=== PATIENT | female | born 1995 | race Caucasian/White ===

== ENCOUNTER → 2017-01-03 | Outpatient (CLI) | payer BC, OTHER | END | disposition home or self-care (01) | LOC: LAB.O 15:14 | PROVIDERS: ATTEND Family Medicine | DX: M62.81 Muscle weakness (generalized) (principal); J45.21 Mild intermittent asthma with (acute) exacerbation; Z79.899 Other long term (current) drug therapy ==

== ENCOUNTER → 2017-02-10 | Outpatient (CLI) | payer BC, OTHER ==
--- NOTE | 2017-02-10 16:33 | CT ---
Procedure: CT HEAD WITHOUT IV CONTRAST Exam Date: 02/10/2017 Ordering Provider: ELIO FONG Clinical Indication: F71, intellectual disability Comparison: None Technique: Using a helical scanner, sequential axial imaging of the brain was obtained without the administration of intravenous contrast. The exam was obtained from the skull base to vertex. This exam was performed according to our departmental dose optimization program which includes use of automated exposure control, adjustment of the mA and/or kV according to patient size and/or use of iterative reconstruction technique. Findings: Exam is limited by patient motion. Ventricular size and configuration are normal. There is no midline shift or hydrocephalus. There is no acute intracranial hemorrhage or mass effect. There is no acute infarct. Cortical robertson matter, subcortical white matter, and periventricular white matter have normal appearance. The calvarium is intact. There is no fracture. There is no lytic or sclerotic lesion. The visualized paranasal sinuses and mastoid air cells are unremarkable. IMPRESSION: 1. No acute intracranial abnormality demonstrated. Electronically signed by: Aguila Steward MD 02/10/2017 4:33 PM CDT
--- NOTE | 2017-02-11 08:18 | CT ---
EXAM DESCRIPTION: Cervical Spine CLINICAL HISTORY: G25.9 COMPARISON: None Available. TECHNIQUE: Cervical CT is performed with thin-section axial imaging. MPRs are created and reviewed as well. FINDINGS: Rotation of the head and cervical spine towards the right is present with loss of normal cervical lordosis. No fracture or dislocation is seen. There is no vertebral abnormality. The C2-3 disc space is diminutive and likely represents incomplete development on a developmental basis without degenerative change. The remaining cervical disc spaces are well-maintained. There is no canal or foraminal compromise. IMPRESSION: Rotation of the cervical spine towards the right and head with loss of normal lordosis suggesting cervical strain or spasm with no injury or malalignment or fracture. 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 Electronically signed by: Yfn Zarate MD 02/11/2017 7:51 AM CDT
== END | disposition home or self-care (01) ==
LOC: CT 09:09
PROVIDERS: ATTEND Psychiatry & Neurology Neurology
DX: F71 Moderate intellectual disabilities (principal)

== ENCOUNTER → 2018-01-30 | Outpatient (CLI) | payer BC, OTHER ==
--- NOTE | 2018-01-30 21:18 | RAD ---
EXAM DESCRIPTION: Cervical Spine,3 Views CLINICAL HISTORY: 22 years Female, SCOLIOSIS, UNSPECIFIED COMPARISON: September 28, 2011 FINDINGS: No fracture or subluxation. No significant cervical thoracic scoliosis.. Soft tissues are unremarkable. IMPRESSION: No acute abnormality. No evidence of cervical or upper thoracic scoliosis. Electronically signed by: Remi Pineda MD 01/30/2018 9:17 PM CDT
--- NOTE | 2018-01-30 21:20 | RAD ---
EXAM DESCRIPTION: Lumbar Spine 3 Views CLINICAL HISTORY: 22 years Female, SCOLIOSIS, UNSPECIFIED COMPARISON: KUB radiograph from September 08, 2013 FINDINGS: No fracture or subluxation. Vertebral body heights and disc spaces are preserved. Lumbar levoscoliosis with a Nair angle of 31 degrees, apex at L2. Soft tissues are unremarkable. Gaseous distention of the stomach. IMPRESSION: Lumbar levoscoliosis Electronically signed by: Remi Pineda MD 01/30/2018 9:19 PM CDT
--- NOTE | 2018-01-30 21:24 | RAD ---
EXAM DESCRIPTION: Thoracic Spine,AP Lateral CLINICAL HISTORY: 22 years Female, SCOLIOSIS, UNSPECIFIED COMPARISON: Chest radiographs from April 03, 2014. FINDINGS: Lower thoracic dextroscoliosis with a Nair angle of 20 degrees, apex at T9. No fracture or subluxation. Vertebral body heights are preserved. Visualized lung is clear. Soft tissues are unremarkable. IMPRESSION: Thoracic dextroscoliosis. Electronically signed by: Remi Pineda MD 01/30/2018 9:22 PM CDT
== END ==
LOC: RAD 17:10
PROVIDERS: ATTEND Nurse Practitioner Family
DX: M41.9 Scoliosis, unspecified (principal)

== ENCOUNTER 2018-10-29 15:59 | Observation (INO) | payer BC, MEDICAID, OTHER ==
[2018-10-29] MEDS ORDERED: SODIUM CHLORIDE 0.9% 1000ML 1,000 ML IVS ONE (16:17)
--- NOTE | 2018-10-29 17:38 | RAD ---
EXAM DESCRIPTION: Abdomen Series CLINICAL HISTORY:23 years Female, elevated lft, dehydration Comparison: CT abdomen from May 09, 2015 FINDINGS: No focal lung consolidation. No pleural effusion. No pneumothorax. Cardiac and mediastinal silhouette is unremarkable. No acute osseous abnormality. Soft tissues are unremarkable. Nonobstructive bowel gas pattern. Large amount of rectosigmoid stool. Lumbar levocurvature. Right acetabular dysplasia. No evidence of free air. IMPRESSION: No acute findings within the chest or abdomen. Large amount of rectosigmoid stool. Lumbar levoscoliosis. Electronically signed by: Remi Pineda MD 10/29/2018 5:37 PM WELFARE ELIGIBILITY INTERVIEWER
[2018-10-29] MEDS ORDERED: FLUCONAZOLE 100 MG TAB PO ONE (17:52)
[2018-10-29] MEDS ORDERED: IBUPROFEN 200 MG TAB PO ONE (17:52)
--- NOTE | 2018-10-29 18:25 | CT ---
CLINICAL HISTORY: elevated lft, decreased appetite COMPARISON: None. TECHNIQUE: CT ABDOMEN PELVIS WITHOUT IV CONTRAST on 10/29/2018 5:50 PM [employer]ILROAD COMMISSIONER This exam was performed according to our departmental dose-optimization program, which includes automated exposure control, adjustment of the mA and/or kV according to patient size and/or use of iterative reconstruction technique. FINDINGS: Lower lungs are clear. Abdomen: Liver is fatty in attenuation. There is no biliary dilatation. Gallbladder is normal in appearance. The pancreas and spleen are normal in appearance. The adrenal glands and kidneys are unremarkable. Abdominal aorta is normal in course and caliber without aneurysm. There is no free air. There is no retroperitoneal adenopathy. Pelvis: There is large amount of stool throughout the colon. Urinary bladder is unremarkable. There is no free fluid. Uterus contains a small fibroid. Appendix is not well seen. Skeleton: There are no acute osseous findings. No suspicious bony lesions. There is curvature of the lumbar spine to the left. IMPRESSION: No definite acute inflammatory process. Electronically signed by: Rory Hu MD 10/29/2018 6:23 PM RAILROAD COMMISSIONER
[2018-10-29] MEDS ORDERED: MAGNESIUM HYDROXIDE 30 ML UD PO ONE (18:30)
[2018-10-29] MEDS ORDERED: cefTRIAXone SODIUM 1 GM in SODIUM CHL 0.9% 50ML MIN-BAG+ 50 ML IVPB ONE (18:56)
[2018-10-29] MEDS ORDERED: SODIUM CHL 0.9% 50ML MIN-BAG+ 50 ML IVPB ONE (19:03)
[2018-10-29] MEDS ORDERED: cefTRIAXone SODIUM 1 GM VIAL ONE (19:03)
--- NOTE | 2018-10-29 19:04 | ED.PDOC ---
History of Present Illness - General Chief Complaint: General Stated Complaint: not eating or drinking,fever Time Seen by Provider: 10/29/18 16:07 Source: patient, family Exam Limitations: clinical condition - History of Present Illness Initial Comments: The patient is a 23-year-old patient with microcephaly brought in by her family secondary to decreased oral intake and decreased urine output over the last 24- 48 hours. The patient has had multiple episodes like this in the past either due to constipation or pharyngitis. Additionally she had an episode 2 years ago where she had a rise in her liver function tests that resolved with rehydration. On examination the patient is mildly to moderately dehydrated and does obviously have a pharyngitis. Nares are also red with clear rhinorrhea. No evidence of abdominal pain to palpation. Lungs are clear. The patient is alert and interactive. She does not really communicate more purposefully. Parents are helpful. Timing/Duration: unsure Severity: moderate Improving Factors: nothing Worsening Factors: nothing Associated Symptoms: loss of appetite, malaise Allergies/Adverse Reactions: Allergies NO KNOWN ALLERGY Allergy (Verified 05/09/15 20:31) Home Medications: Ambulatory Orders Montelukast [Singulair] 10 mg PO BEDTIME 06/07/16 Norgestimate-Ethinyl Estradiol [[place]-Linyah 0.25-35 mg-Mcg] 1 tab PO DAILY 06/07/16 Review of Systems - Review of Systems Constitutional: States: fever - low-grade, malaise EENTM: States: nose congestion, throat pain Respiratory: States: no symptoms reported Cardiology: States: no symptoms reported Gastrointestinal/Abdominal: States: nausea. Denies: vomiting Genitourinary: States: no symptoms reported Musculoskeletal: States: no symptoms reported Skin: States: no symptoms reported Neurological: States: no symptoms reported Endocrine: States: no symptoms reported All other Systems: No Change from Baseline Past Medical History (General) - Patient Medical History Hx Seizures: No Hx Stroke: No Hx Dementia: No Hx Asthma: No Hx of COPD: No Hx Cardiac Disorders: No Hx Congestive Heart Failure: No Hx Pacemaker: No Hx Hypertension: No Hx Thyroid Disease: No Hx Diabetes: No Hx Gastroesophageal Reflux: No Hx Renal Disease: No Hx Cancer: No Hx of HIV: No Hx Hepatitis C: No Hx MRSA: No - Vaccination History Hx Influenza Vaccination: No - Social History Hx Tobacco Use: No Hx Alcohol Use: No Hx Substance Use: No Hx Substance Use Treatment: No Hx Depression: No - Female History Patient : No Family Medical History - Family History Mother Family History: No Known Physical Exam - Physical Exam General Appearance: Alert, Comfortable, No apparent distress Eye Exam: bilateral normal Ears, Nose, Throat: hearing grossly normal, nasal congestion, pharyngeal erythema Neck: full range of motion, supple Respiratory: lungs clear, normal breath sounds, no respiratory distress, no accessory muscle use Cardiovascular/Chest: normal peripheral pulses, regular rate, rhythm, no edema Peripheral Pulses: radial,right: 2+, radial,left: 2+ Gastrointestinal/Abdominal: non tender, soft Rectal Exam: deferred Back Exam: no CVA tenderness Extremity: no pedal edema, normal capillary refill Neurologic: alert, normal mood/affect - for this patient Skin Exam: normal color Comments: Vital Signs - 24 hr 10/29/18 10/29/18 16:07 17:17 Temperature 100 F H Pulse Rate [ 72 120 H Left Brachial] Respiratory 20 18 Rate Blood Pressure 137/110 [Left Arm] O2 Sat by Pulse 96 97 Oximetry Progress - Progress Progress: 10/29/18 19:05 the patient is a 23-year-old female presenting to the emergency room secondary to decreased oral intake and decreased urine output. X-ray does confirm constipation and patient has received a dose of milk of magnesia. She does obviously have a rhinitis and significant pharyngitis. She has tested negative for strep. She has received a dose of Motrin to help with discomfort. She does also have significant dehydration and has received a liter of IV fluids. The patient does have an elevation of her liver function tests which has occurred in the past. In the past and resolved with rehydration. We will see if that does the same today. CT scan of abdomen and pelvis shows no definitive pathology of the liver or gallbladder. Admit for continued care. Blood culture along with urinalysis and amylase and lipase are still pending. - Results/Orders Results/Orders: Laboratory Tests 10/29/18 10/29/18 10/29/18 16:14 16:35 16:35 WBC 5.9 RBC 4.80 Hgb 14.5 Hct 43.6 MCV 90.8 MCH 30.2 MCHC 33.3 RDW 14.8 H Plt Count 200 MPV 8.2 Absolute Neuts (auto) 4.30 Absolute Lymphs (auto) 1.20 Absolute Monos (auto) 0.40 Absolute Eos (auto) 0.00 Absolute Basos (auto) 0.00 Neutrophils % 72.7 Lymphocytes % 21.0 Monocytes % 5.9 Eosinophils % 0.0 L Basophils % 0.4 Sodium 138 Potassium 4.0 Chloride 105 Carbon Dioxide 24 Anion Gap 13.0 BUN 24 H Creatinine 0.58 L BUN/Creatinine Ratio 41.4 H Random Glucose 127 H Serum Osmolality 281.3 Calcium 8.5 Total Bilirubin 0.3 AST 180 H ALT 242 H Alkaline Phosphatase 100 Serum Total Protein 7.6 Albumin 3.0 L Globulin 4.6 H Albumin/Globulin Ratio 0.7 L Group A Strep Rapid Negative CT scan of abdomen and pelvis is reassuring is in no acute hepatic or gallbladder pathology. See details of report. Pending at this time are amylase lipase and blood culture as well as urinalysis. Departure - Departure Clinical Impression: Dehydration, Rhinopharyngitis, Hepatitis Disposition: Admit Patient Referrals: SHIRIN LAMB MD [Primary Care Provider] - 1-2 Weeks Home Medications: Ambulatory Orders Montelukast [Singulair] 10 mg PO BEDTIME 06/07/16 Norgestimate-Ethinyl Estradiol [[place]-Linyah 0.25-35 mg-Mcg] 1 tab PO DAILY 06/07/16 Decision To Admit - Decistion To Admit Decision to Admit Reason: Medical Nature Decision to Admit Date: 10/29/18 Decision to Admit Time: 19:07
--- NOTE | 2018-10-29 20:02 | HP ---
SUPERVISING PHYSICIAN: Yfn Weaver MD CHIEF COMPLAINT: Not eating or drinking with subjective fever. HISTORY OF PRESENT ILLNESS: Ms. Morelos is a 23-year-old female patient who has a history of microcephaly who was brought to the Emergency Room tonight by her family due to the fact that she had demonstrated decreased oral intake and decreasing urine output over the last 24 to 48 hours. The patient has had several episodes in the past and, per family, usually this is due to constipation and pharyngitis. Also it is noted in the last year, she has had some elevated liver enzymes which resolved with rehydration with no acute findings. Today in the Emergency Room, the patient was found to be moderately dehydrated with obvious pharyngitis. She had no abdominal pain on palpation. She is alert, interactive and her family notes she does not usually communicate purposefully. Laboratory studies in the Emergency Room showed she had a normal white count at 5,900 without a left shift. Chemistry showed she had elevated BUN of 24, creatinine 0.58, glucose 127. Electrolytes were within normal limits. Her AST and ALT were both elevated with AST 180, ALT 242. Amylase and lipase both normal. Vital signs initially in the Emergency Room showed she was running a low grade fever of 100, but she was mildly hypertensive with blood pressure 137/110, saturation 93% on room air with pulse 120. Given that she was looking dehydrated and question of pharyngitis and reported history, additional laboratory specimens were completed including a strep screen which was negative for Group A strep. Urinalysis was pending at time of admission. Blood cultures were completed given that she had a fever and she was started on some fluids as well as antibiotic coverage initially with Rocephin. She was given some ibuprofen which did result in return of her temperature to baseline level. She was also given a single dose of Diflucan. Based on her clinical findings and concerns for dehydration and her liver enzymes being elevated, the patient is now going to be placed in Observation for further treatment and evaluation. PAST MEDICAL HISTORY: 1. Cerebral palsy. 2. Seizure disorder. 3. Microcephaly and muscular sclerosis. 4. Seasonal allergies. PAST SURGICAL HISTORY: 1. Previous G-tube placement and removal. CURRENT MEDICATIONS: 1. Singulair 10 mg at bedtime. 2. Leslie-Linyah 0.25 mg/0.035 mg 1 tablet daily. ALLERGIES: NO KNOWN DRUG ALLERGIES. FAMILY HISTORY: Unremarkable. SOCIAL HISTORY: The patient is disabled and lives at home with her parents in [place]. She has no history of tobacco, alcohol or illicit drug use. REVIEW OF SYSTEMS: Unobtainable from the patient, but per the mother's report: CONSTITUTIONAL: Positive for low grade fever, general malaise. HEENT: Negative for nasal congestion, sore throat, earaches. RESPIRATORY: Negative for coughing, congestion, wheezing, shortness of breath. CARDIOVASCULAR: Denies chest pain, palpitations or syncopal episodes. GASTROINTESTINAL: Positive for nausea, but negative for vomiting, abdominal pain. GENITOURINARY: Negative for dysuria, hematuria, polyuria. Positive for decreased wet diapers. SKIN: Negative for rashes, lesions or sores. NEUROLOGIC: No change from baseline. No seizures, syncopal episodes, but positive for decreased appetite. PHYSICAL EXAMINATION: VITAL SIGNS: Temperature initially in the Emergency Room was 100. Pulse 120. Blood pressure 137/79. Respirations 27. Oxygen saturation 96% on room air. After a liter of fluids, pulse was at 104 and after ibuprofen, temperature was down to 98 at time of admission, blood pressure 139/79, saturation 96% on room air. Admission weight 54.3 kg. GENERAL: The patient was alert, appeared to be in no acute distress. She was interacting with her parents, but she is nonverbal. HEENT: Tympanic membranes clear bilaterally. Oropharynx is pink with dry mucous membranes. Posterior pharyngeal region with mildly erythematous, but no drainage. NECK: Supple with full range of motion. No jugular venous distention noted. RESPIRATORY: Lungs clear to auscultation bilaterally without any rhonchi, wheezes, or rales. CARDIOVASCULAR: Regular rate and rhythm without any appreciable murmurs, gallops, or rubs. ABDOMEN: Soft, nontender. Positive bowel sounds. RECTAL: Deferred. BACK: No CVA tenderness. EXTREMITIES: There is no pedal edema. Normal capillary refill. NEUROLOGIC: The patient is alert and oriented times three and at baseline status per family's report. SKIN: Warm, pink and dry. LABORATORY: White count 5,900, hemoglobin 14.5, hematocrit 43.6, platelet count 200,000. Differential did not a left shift. Chemistries showed normal electrolytes, potassium 4, BUN 24, creatinine 0.58. Blood sugar 127, calcium 8.5. Liver functions showed elevation in ALT at 242, AST 180. Total bilirubin normal at 0.3. Amylase and lipase were normal. Urinalysis pending. Serology showed group A strep negative. MICROBIOLOGY: Group A strep culture pending. Blood cultures pending. RADIOLOGY: Abdominopelvic CT per radiologic interpretation without contrast showed no definite acute inflammatory processes noted. Urinary bladder was unremarkable. There was large amount of stool throughout the colon. Uterus contained a small fibroid. Appendix was not seen. No free air. No retroperitoneal adenopathy. Gallbladder was normal in appearance. ASSESSMENT: 1. Moderate dehydration due to poor oral intake and exacerbated by mild fever. 2. Rhinopharyngitis with negative strep screen, probably contributing to #1. 3. Hepatitis with no signs of infection, no past history of infectious hepatitis, probably due to acute dehydration and viral syndrome. 4. Moderate obstipation noted on CT scan with no signs of abdominal pains. 5. History of microcephaly, cerebral palsy and seizure disorder. 6. Seasonal allergies on Singulair. PLAN: The patient is going to be placed in Observation overnight for fluid maintenance and close monitoring of her laboratory studies, especially her liver enzymes. We will start her on some IV fluids after a liter bolus in the Emergency Room. We will go ahead and do straight cath to further rule out any possible urinary tract infection. She was given a dose of Rocephin in the Emergency Room and Diflucan. We will repeat labs in the morning. I anticipate her length of stay to be one to two days. Discharge will primarily depending on the patient's ability to have adequate oral intake and stay hydrated with oral intake. Until then, we will continue to utilize IV fluid replacement. Until she can continue with outpatient management, we will continue monitor the patient closely and treat as needed. #[id number] [facility]
[2018-10-29] MEDS ORDERED: ONDANSETRON INJ 4 MG/2 ML VIAL IV PRN (20:10)
[2018-10-29] MEDS ORDERED: SODIUM CHLORIDE 0.9% (FLUSH) 10 ML SYG IV PRN (20:10)
[2018-10-29] MEDS ORDERED: IBUPROFEN 400 MG TAB PO PRN (20:14)
[2018-10-29] MEDS ORDERED: IV SET AND CAP CHANGE INJ INJ SCH (20:30)
[2018-10-29] MEDS: KCL 20MEQ/D5 1/2NS 1,000 ML IVS PRN (21:01)
[2018-10-30] MEDS ORDERED: SODIUM CHLORIDE 0.9% 500ML 500 ML IVS ONE (02:59)
[2018-10-30] MEDS: KCL 20MEQ/D5 1/2NS 1,000 ML IVS PRN ×2 (03:57→10:54)
[2018-10-30 10:23] VITALS: BP 93/65
[2018-10-30] MEDS ORDERED: AMOXICILLIN & POT CLAVULANATE 875 MG TAB PO SCH (12:00)
[2018-10-30 13:49] VITALS: TEMP 97.5; O2SAT 97
[2018-10-30] MEDS ORDERED: INFLUENZA VIRUS VACC (ADULT) 0.5 ML SYG IM ONE (14:21)
--- NOTE | 2018-11-06 08:59 | DS ---
SUPERVISING PHYSICIAN: Nadeem Valladares MD ADMISSION DIAGNOSIS: 1. Moderate dehydration due to poor oral intake and exacerbated by mild fever. 2. Rhinopharyngitis with negative strep screen, probably contributing to #1. 3. Hepatitis with no signs of infection, no past history of infectious hepatitis, probably due to acute dehydration and viral syndrome. 4. Moderate obstipation noted on CT scan with no signs of abdominal pains. 5. History of microcephaly, cerebral palsy and seizure disorder. 6. Seasonal allergies on Singulair. DISCHARGE DIAGNOSIS: 1. Moderate dehydration due to poor oral intake and exacerbated by fever, resolved with the patient showing good oral intake. 2. Rhinopharyngitis with negative strep screen, probably contributing to #1. 3. Hepatitis with no signs of infection with the patient having previous elevated liver enzymes with source at this time being uncertain, possibly secondary to dehydration and viral syndrome, needing close followup as an outpatient. 4. Moderate obstipation noted on CT scan without any abdominal pains. 5. History of microcephaly, cerebral palsy and seizure disorder. 6. Seasonal allergies on Singulair. REASON FOR HOSPITALIZATION: Ms. Morelos is a 23-year-old female patient who has a history of microcephaly who was brought to the Emergency Room tonight by her family due to the fact that she had demonstrated decreased oral intake and decreasing urine output over the last 24 to 48 hours. The patient has had several episodes in the past and, per family, usually this is due to constipation and pharyngitis. Also it is noted in the last year, she has had some elevated liver enzymes which resolved with rehydration with no acute findings. Today in the Emergency Room, the patient was found to be moderately dehydrated with obvious pharyngitis. She had no abdominal pain on palpation. She is alert, interactive and her family notes she does not usually communicate purposefully. Laboratory studies in the Emergency Room showed she had a normal white count at 5,900 without a left shift. Chemistry showed she had elevated BUN of 24, creatinine 0.58, glucose 127. Electrolytes were within normal limits. Her AST and ALT were both elevated with AST 180, ALT 242. Amylase and lipase both normal. Vital signs initially in the Emergency Room showed she was running a low grade fever of 100, but she was mildly hypertensive with blood pressure 137/110, saturation 93% on room air with pulse 120. Given that she was looking dehydrated and question of pharyngitis and reported history, additional laboratory specimens were completed including a strep screen which was negative for Group A strep. Urinalysis was pending at time of admission. Blood cultures were completed given that she had a fever and she was started on some fluids as well as antibiotic coverage initially with Rocephin. She was given some ibuprofen which did result in return of her temperature to baseline level. She was also given a single dose of Diflucan. Based on her clinical findings and concerns for dehydration and her liver enzymes being elevated, the patient is now going to be placed in Observation for further treatment and evaluation. LABORATORY: White count on admission was 5,900, hemoglobin 14.5, hematocrit 43.6, platelet count 200,000. Differential without a left shift. Chemistries showed normal electrolytes, both on admission and at discharge except for a slightly elevated chloride at discharge of 113. BUN at discharge was 12, creatinine less than 0.4. Initial BUN was 24. Calcium normal on admission at 8.5, but after fluids, it showed normalization to her level with the patient having a protein of 2.5 with correction of 7.1 calcium to 8.3. AST and ALT were both showing elevation, but were return to baseline prior to discharge with initial AST 180 and ALT 242. At discharge, AST was 123 and ALT 186. Urinalysis showed just 15 ketones. Microscopic revealed 3 to 5 RBCs and WBCs, 5 to 10 epithelials, 1+ bacteria. Strep screen was negative. MICROBIOLOGY: Blood cultures showed no growth at 5 days. No beta hemolytic strep was isolated on strep screen cultures. RADIOLOGY: Abdominal x-ray on admission per radiologic interpretation showed no acute findings of the chest or abdomen, but a large amount of rectosigmoid stool. Abdominopelvic CT was then completed with contrast and per radiologic interpretation there was no definite acute inflammatory processes noted. HOSPITAL COURSE: Ms. Morelos was admitted to the hospital for dehydration and poor oral intake. She was started on IV fluids. She responded well to treatment. She was actually taking oral diet without any complications on the morning of discharge and it was felt that she had shown good clinical improvement to be discharged to outpatient setting and treatment. PLAN: Ms. Morelos was discharged on 10/30/18 to the care of her parents. They were instructed to followup with Dr. Valladares and resume home medications. They were encouraged to push fluids to prevent dehydration. She was told to return to the hospital should she have any worsening symptoms. Diet was to advance as tolerated. Activity as normal. Prescriptions at discharge included Augmentin 875 mg twice daily for 5 days to cover for possible acute pharyngitis even though strep screen was negative as well as at that point urinary tract infection pending final culture results. DISPOSITION: The patient was discharged to the care of her mother. CONDITION ON DISCHARGE: Stable and improving. #[id number] [facility]
== END 2018-10-30 16:39 | disposition home or self-care (01) ==
LOC: ER 15:59 → MS 20:01
PROVIDERS: ADMIT Nurse Practitioner Family; ATTEND Nurse Practitioner Family
DX: E86.0 Dehydration (principal); R50.81 Fever presenting with conditions classified elsewhere; J00 Acute nasopharyngitis [common cold]; K75.9 Inflammatory liver disease, unspecified; K59.00 Constipation, unspecified; Q02 Microcephaly; G80.9 Cerebral palsy, unspecified; G40.909 Epilepsy, unspecified, not intractable, without status epilepticus; K76.0 Fatty (change of) liver, not elsewhere classified; M41.86 Other forms of scoliosis, lumbar region; Z79.899 Other long term (current) drug therapy; Z23 Encounter for immunization
CPT/HCPCS: 90471; 96361 ×2; 96365; J0696; 90674; J7040; J7030; J7050; 80053 ×2; 87880; 36415 ×3; 82150; 81001; 85025; 87040; 83690; 87070; 74019; 74176; 94760 ×2; 99285; G0378

== ENCOUNTER → 2018-12-04 | Outpatient (CLI) | payer BC | LOC: LAB.O 18:11 | PROVIDERS: ATTEND Nurse Practitioner Family | DX: R63.0 Anorexia (principal) ==

== ENCOUNTER 2018-12-06 18:32 | Emergency (ER) | payer BC ==
[2018-12-06 18:47] VITALS: TEMP 98.9; O2SAT 97
--- NOTE | 2018-12-06 18:52 | ED.PDOC ---
History of Present Illness - General Chief Complaint: General Stated Complaint: not eating Time Seen by Provider: 12/06/18 18:48 Source: family Exam Limitations: clinical condition, physical impairment - cerebral palsy .non verbal - History of Present Illness Initial Comments: Breanna Morelos 23 y/o female brought by caregiver since not eating well since admission to hospital end of last year .She had 2 rounds of antibiotics and was presumptively treated for flu like symptoms.No nausea/vomiting,diarrhea Timing/Duration: other - 4 weeks Severity: moderate Improving Factors: nothing Worsening Factors: nothing Associated Symptoms: other - see hpi Allergies/Adverse Reactions: Allergies NO KNOWN ALLERGY Allergy (Verified 10/29/18 20:30) Home Medications: Ambulatory Orders Montelukast [Singulair] 10 mg PO BEDTIME 06/07/16 Amoxicillin & Pot Clavulanate [Augmentin Tab] 875 mg PO BID #10 tab 10/30/18 Norgestimate-Ethinyl Estradiol [Mononessa 0.25-35 mg-Mcg] 1 tab PO DAILY 10/30/18 Review of Systems - Review of Systems Constitutional: States: see HPI, other - loss of appetite Unable to Obtain Due To: condition, clinical condition - cerebral palsy non verbal Past Medical History (General) - Patient Medical History Hx Seizures: Yes Hx Stroke: No Hx Dementia: No Hx Asthma: - Seasonal allergies Hx of COPD: No Hx Cardiac Disorders: No Hx Congestive Heart Failure: No Hx Pacemaker: No Hx Hypertension: No Hx Thyroid Disease: No Hx Diabetes: No Hx Gastroesophageal Reflux: No Hx Renal Disease: No Hx Cancer: No Hx of HIV: No Hx Hepatitis C: No Hx MRSA: No Surgical History: other - Vaccination History Hx Influenza Vaccination: No Hx Pneumococcal Vaccination: No - Social History Hx Tobacco Use: No Hx Alcohol Use: No Hx Substance Use: No Hx Substance Use Treatment: No Hx Depression: No Hx Physical Abuse: No Hx Emotional Abuse: No - Female History Patient : No Family Medical History - Family History Mother Family History: No Known Father Family History: No Known Physical Exam - Physical Exam General Appearance: Alert, Comfortable, No apparent distress, Other - microcephaly Eye Exam: bilateral normal Ears, Nose, Throat: normal ENT inspection, pharyngeal erythema Neck: full range of motion, supple, normal inspection Respiratory: chest non-tender, lungs clear, normal breath sounds Cardiovascular/Chest: normal peripheral pulses, regular rate, rhythm, no gallop, no murmur Peripheral Pulses: radial,right: 2+, radial,left: 2+ Gastrointestinal/Abdominal: non tender, soft, no organomegaly Back Exam: no CVA tenderness, no vertebral tenderness Extremity: no pedal edema, no calf tenderness Neurologic: alert Progress - Progress Progress: 12/06/18 18:58 Vital Signs - 8 hr 12/06/18 18:38 Temperature 98.9 F Pulse Rate [ 60 Right Radial] Respiratory 16 Rate Blood Pressure 121/97 [Right Arm] O2 Sat by Pulse 97 Oximetry - Results/Orders Results/Orders: Vital Signs - 8 hr 12/06/18 12/06/18 18:38 20:14 Temperature 98.9 F Pulse Rate [ 60 71 Right Radial] Respiratory 16 16 Rate Blood Pressure 121/97 120/85 [Right Arm] O2 Sat by Pulse 97 97 Oximetry 12/06/18 18:52 Catheter:Intermittent .PRN IV Care:Saline Lock per Protoc QSHIFT URINALYSIS Stat 12/06/18 19:39 STREP A SCREEN CULTURE Stat Laboratory Results - last 24 hr 12/06/18 12/06/18 12/06/18 19:15 19:15 19:18 WBC 8.3 RBC 4.55 Hgb 13.8 Hct 41.9 MCV 92.1 MCH 30.3 MCHC 32.9 L RDW 14.9 H Plt Count 202 MPV 8.7 Absolute Neuts (auto) 3.90 Absolute Lymphs (auto) 3.70 H Absolute Monos (auto) 0.50 Absolute Eos (auto) 0.10 Absolute Basos (auto) 0.10 Neutrophils % 47.4 Lymphocytes % 44.1 Monocytes % 5.9 Eosinophils % 1.4 Basophils % 1.2 Sodium Potassium Chloride Carbon Dioxide Anion Gap BUN Creatinine BUN/Creatinine Ratio Random Glucose Serum Osmolality Lactic Acid Calcium Total Bilirubin AST ALT Alkaline Phosphatase Serum Total Protein Albumin Globulin Albumin/Globulin Ratio Lipase 47 Monoscreen Negative Group A Strep Rapid 12/06/18 12/06/18 12/06/18 19:18 19:18 19:39 WBC RBC Hgb Hct MCV MCH MCHC RDW Plt Count MPV Absolute Neuts (auto) Absolute Lymphs (auto) Absolute Monos (auto) Absolute Eos (auto) Absolute Basos (auto) Neutrophils % Lymphocytes % Monocytes % Eosinophils % Basophils % Sodium 140 Potassium 3.7 Chloride 106 Carbon Dioxide 26 Anion Gap 11.7 L BUN 20 H Creatinine 0.54 L BUN/Creatinine Ratio 37.0 H Random Glucose 116 H Serum Osmolality 283.0 Lactic Acid 1.5 Calcium 8.8 Total Bilirubin 0.6 AST 354 H ALT 710 H Alkaline Phosphatase 126 H Serum Total Protein 7.8 Albumin 3.3 Globulin 4.5 H Albumin/Globulin Ratio 0.7 L Lipase Monoscreen Group A Strep Rapid Negative Discuss all test result with caregiver advised to see primary Md for referral to GI specialist - EKG/XRAY/CT XRAY: chest - atelectasis CT Ordered: Yes - no acute abnormality Departure - Departure Clinical Impression: Anorexia, Abnormal liver enzymes Time of Disposition: 20:52 Disposition: Discharge to Home or Self Care Condition: Fair Departure Forms: ED Discharge - Pt. Copy, Patient Portal Self Enrollment Instructions: Liver Function Test Referrals: SHIRIN LAMB MD [Primary Care Provider] - 1-2 Weeks Home Medications: Ambulatory Orders Montelukast [Singulair] 10 mg PO BEDTIME 06/07/16 Amoxicillin & Pot Clavulanate [Augmentin Tab] 875 mg PO BID #10 tab 10/30/18 Norgestimate-Ethinyl Estradiol [Mononessa 0.25-35 mg-Mcg] 1 tab PO DAILY 10/30/18 Additional Instructions: Need to call up primary Md for referral to [facility];May have ice cream milk shake
--- NOTE | 2018-12-06 19:24 | RAD ---
EXAM DESCRIPTION: Chest,1 View CLINICAL HISTORY: 23 years Female cough COMPARISON: None. FINDINGS: Heart size appears within normal limits. Small amount of density in the left lung base which may reflect atelectasis or developing infiltrate. Right lung appears clear. No pneumothorax or pleural fluid. IMPRESSION: Question small amount of atelectasis versus infiltrate in the left lung base Electronically signed by: Sandra Jeronimo MD 12/06/2018 7:21 PM SUTURE GAUGER
[2018-12-06 20:16] VITALS: BP 120/85
--- NOTE | 2018-12-06 20:32 | CT ---
EXAM DESCRIPTION: Abdoment/Pelvis w/o Contrast CLINICAL HISTORY:23 years Female, elevated lft Comparison: October 29, 2018 TECHNIQUE: Contiguous axial images of the abdomen and pelvis were obtained followed by reconstruction images. This exam was performed according to our departmental dose-optimization program, which includes automated exposure control, adjustment of the mA and/or kV according to patient size and/or use of iterative reconstruction technique. FINDINGS: Evaluation markedly limited due to extensive patient motion. Within the limitations of this exam, unenhanced liver, gallbladder, spleen, pancreas, adrenal glands, kidneys, ureters, bladder are without acute abnormality. No definitive bowel inflammatory changes. No evidence of obstruction. Moderate amount of colonic stool. No large intra-abdominal fluid collection. No acute osseous abnormality. Lumbar levocurvature. No acute osseous abnormality. IMPRESSION: Evaluation limited due to extensive patient motion. Otherwise no acute intra-abdominal abnormality. Moderate amount of stool noted throughout the colon. Electronically signed by: Remi Pineda MD 12/06/2018 8:30 PM RESEARCH CENTER DIRECTOR
[2018-12-06] MEDS: SODIUM CHLORIDE 0.9% 500ML 500 ML IVS ONE (21:00)
== END 2018-12-06 21:06 | disposition home or self-care (01) ==
LOC: ER 18:32
DX: R63.0 Anorexia (principal); R79.89 Other specified abnormal findings of blood chemistry; G80.9 Cerebral palsy, unspecified; R56.9 Unspecified convulsions; Z79.899 Other long term (current) drug therapy

== ENCOUNTER 2019-09-28 07:26 | Emergency (ER) | payer BC ==
[2019-09-28] MEDS ORDERED: ACETAMINOPHEN LIQUID 160 MG/5 ML UD PO ONE (07:55)
--- NOTE | 2019-09-28 07:59 | ED.PDOC ---
History of Present Illness - General Chief Complaint: General Stated Complaint: Intermittent crying, not feeling well Time Seen by Provider: 09/28/19 07:47 Additional Information: Patient with chief complaint of tearfulness since yesterday evening. Patient is baseline nonverbal due to cerebral palsy/developmental delay and is unable to contribute to the history, history is per her mother and father. Patient is typically a happy individual, non-tearful, but since yesterday patient has been visibly uncomfortable with intermittent crying throughout the night last night. Parents deny fever, chills, vomiting, diarrhea, cough. Parents report patient's only medical condition is history of seizure disorder but patient has not had a seizure in several years and is presently not taking anti-seizure medications. - History of Present Illness Allergies/Adverse Reactions: Allergies NO KNOWN ALLERGY Allergy (Verified 09/28/19 07:42) Home Medications: Ambulatory Orders Montelukast [Singulair] 10 mg PO BEDTIME 06/07/16 Norgestimate-Ethinyl Estradiol [Mononessa 0.25-35 mg-Mcg] 1 tab PO DAILY 10/30/18 Review of Systems - Review of Systems Constitutional: Denies: fever EENTM: States: no symptoms reported Respiratory: States: no symptoms reported. Denies: cough, short of breath Cardiology: States: no symptoms reported Gastrointestinal/Abdominal: States: no symptoms reported. Denies: diarrhea, vomiting Genitourinary: States: no symptoms reported Musculoskeletal: States: no symptoms reported Skin: States: no symptoms reported. Denies: rash Endocrine: States: no symptoms reported Hematologic/Lymphatic: States: no symptoms reported Past Medical History (General) - Patient Medical History Hx Seizures: Yes - Epilespy Hx Stroke: No Hx Dementia: No Hx Asthma: - Seasonal allergies Hx of COPD: No Hx Cardiac Disorders: No Hx Congestive Heart Failure: No Hx Pacemaker: No Hx Hypertension: No Hx Thyroid Disease: No Hx Diabetes: No Hx Gastroesophageal Reflux: No Hx Renal Disease: No Hx Cancer: No Hx of HIV: No Hx Hepatitis C: No Hx MRSA: No Surgical History: other - Vaccination History Hx Tetanus, Diphtheria Vaccination: No Hx Influenza Vaccination: No Hx Pneumococcal Vaccination: No - Social History Hx Tobacco Use: No Hx Alcohol Use: No Hx Substance Use: No Hx Substance Use Treatment: No Hx Depression: No Hx Physical Abuse: No Hx Emotional Abuse: No - Female History Patient is a Female of Child Bearing Age (10 -59 yrs old): Yes Patient : No - Birh control Family Medical History - Family History Mother Family History: No Known Father Family History: No Known Physical Exam - Physical Exam General Appearance: Alert, Obese, Other - intermittently tearful Ears, Nose, Throat: normal ENT inspection, normal pharynx Neck: non-tender, full range of motion, supple Respiratory: lungs clear, normal breath sounds, no respiratory distress, no accessory muscle use Cardiovascular/Chest: normal peripheral pulses, regular rate, rhythm, no edema Gastrointestinal/Abdominal: normal bowel sounds, soft, other - questionable lower abdominal tenderness to palpation Back Exam: normal inspection Extremity: non-tender, normal inspection Neurologic: alert, other - active; non-verbal, follows no commands Skin Exam: normal color, warm/dry Lymphatic: no adenopathy Progress - Progress Progress: 09/28/19 08:05 differential diagnosis includes but is not limited to appendicitis, UTI, abdominal cramping, electrolyte disorder 09/28/19 11:29 EXAM: Abdomen/Pelvis w/Contrast CLINICAL INDICATION: Ulcerative colitis, pain COMPARISON: 12/06/2018 TECHNIQUE: The CT scan was done using contiguous axial 5 mm postcontrast sections through the abdomen and pelvis including IV contrast. This exam was performed according to our departmental dose-optimization program, which includes automated exposure control, adjustment of the mA and/or kV according to patient size and/or use of iterative reconstruction technique. FINDINGS: The visualized portions of the lungs are clear. The liver, gallbladder, kidneys, pancreas, spleen, and adrenal glands have a normal CT appearance. No dilated loops of small bowel are identified. Study is somewhat limited by motion artifact. No obvious abnormality of the bowel is identified. There are no dilated small bowel loops. There is no free air, free fluid, or abscess. IMPRESSION: No evidence of an acute intra-abdominal process. Patient reexamined and has been happy and non-tearful throughout her ED course per mom. Patient's labs are unremarkable and her chest x-ray and abdominal CT are nonacute. I have discussed with mother and father that there does not appear to be any infection today and the patient is safe for discharge with home observation and follow up with her PCP this coming week. Vital signs stable, patient NAD and looks clinically well and is safe for discharge with outpatient follow-up. Follow-up instructions, discharge instructions and return to ED precautions discussed with parents. Parents voice understanding and willingness to comply with instructions. All laboratory and radiographic results have been discussed with the parents and all questions answered. Parents happy with plan. - Results/Orders Results/Orders: 09/28/19 07:53 Chest,1 View [RAD] Stat 09/28/19 07:54 Hold Metformin x 48Hrs [id number] Laboratory Results - last 24 hr 09/28/19 09/28/19 09/28/19 08:30 08:30 08:30 WBC 7.3 RBC 4.13 L Hgb 12.7 Hct 38.4 MCV 93.0 MCH 30.9 MCHC 33.2 RDW 13.9 Plt Count 201 MPV 8.6 Absolute Neuts (auto) 4.00 Absolute Lymphs (auto) 2.80 Absolute Monos (auto) 0.30 Absolute Eos (auto) 0.10 Absolute Basos (auto) 0.10 Neutrophils % 54.1 Lymphocytes % 38.8 Monocytes % 4.6 Eosinophils % 1.7 Basophils % 0.8 Sodium 137 Potassium 4.0 Chloride 103 Carbon Dioxide 23 Anion Gap 15.0 BUN 13 Creatinine 0.57 L BUN/Creatinine Ratio 22.8 H Random Glucose 112 H Serum Osmolality 274.7 L Lactic Acid 2.3 H Calcium 9.1 Total Bilirubin 0.2 AST 25 ALT 19 Alkaline Phosphatase 59 Serum Total Protein 7.4 Albumin 3.1 L Globulin 4.3 H Albumin/Globulin Ratio 0.7 L Lipase 30 Urine Color Urine Appearance Urine pH Ur Specific [place] Urine Protein Urine Glucose (UA) Urine Ketones Urine Blood Urine Nitrite Urine Bilirubin Urine Urobilinogen Ur Leukocyte Esterase Urine RBC Urine WBC Ur Epithelial Cells Urine Bacteria 09/28/19 10:20 WBC RBC Hgb Hct MCV MCH MCHC RDW Plt Count MPV Absolute Neuts (auto) Absolute Lymphs (auto) Absolute Monos (auto) Absolute Eos (auto) Absolute Basos (auto) Neutrophils % Lymphocytes % Monocytes % Eosinophils % Basophils % Sodium Potassium Chloride Carbon Dioxide Anion Gap BUN Creatinine BUN/Creatinine Ratio Random Glucose Serum Osmolality Lactic Acid Calcium Total Bilirubin AST ALT Alkaline Phosphatase Serum Total Protein Albumin Globulin Albumin/Globulin Ratio Lipase Urine Color Yellow Urine Appearance Clear Urine pH 7.0 Ur Specific [place] 1.010 Urine Protein Negative Urine Glucose (UA) Negative Urine Ketones Negative Urine Blood Trace-intact H Urine Nitrite Negative Urine Bilirubin Negative Urine Urobilinogen 0.2 Ur Leukocyte Esterase Negative Urine RBC 0-1 Urine WBC 0 Ur Epithelial Cells 0-1 Urine Bacteria 0 EXAM: Abdomen/Pelvis w/Contrast CLINICAL INDICATION: Ulcerative colitis, pain COMPARISON: 12/06/2018 TECHNIQUE: The CT scan was done using contiguous axial 5 mm postcontrast sections through the abdomen and pelvis including IV contrast. This exam was performed according to our departmental dose-optimization program, which includes automated exposure control, adjustment of the mA and/or kV according to patient size and/or use of iterative reconstruction technique. FINDINGS: The visualized portions of the lungs are clear. The liver, gallbladder, kidneys, pancreas, spleen, and adrenal glands have a normal CT appearance. No dilated loops of small bowel are identified. Study is somewhat limited by motion artifact. No obvious abnormality of the bowel is identified. There are no dilated small bowel loops. There is no free air, free fluid, or abscess. IMPRESSION: No evidence of an acute intra-abdominal process. Departure - Departure Clinical Impression: Tearfulness Time of Disposition: 11:32 Disposition: Discharge to Home or Self Care Condition: Good Departure Forms: ED Discharge - Pt. Copy, Patient Portal Self Enrollment Referrals: SHIRIN LAMB MD [Primary Care Provider] - 1-5 Days Home Medications: Ambulatory Orders Montelukast [Singulair] 10 mg PO BEDTIME 06/07/16 Norgestimate-Ethinyl Estradiol [Mononessa 0.25-35 mg-Mcg] 1 tab PO DAILY 10/30/18 Additional Instructions: Return to the ED for worsening symptoms, fever, refusal to eat, lethargy, inconsolability. Please follow-up with your primary care doctor in 2-3 days for reevaluation.
[2019-09-28] MEDS ORDERED: SODIUM CHLORIDE 0.9% 1000ML 1,000 ML IVS ONE (08:06)
--- NOTE | 2019-09-28 10:01 | CT ---
EXAM: Abdomen/Pelvis w/Contrast CLINICAL INDICATION: Ulcerative colitis, pain COMPARISON: 12/06/2018 TECHNIQUE: The CT scan was done using contiguous axial 5 mm postcontrast sections through the abdomen and pelvis including IV contrast. This exam was performed according to our departmental dose-optimization program, which includes automated exposure control, adjustment of the mA and/or kV according to patient size and/or use of iterative reconstruction technique. FINDINGS: The visualized portions of the lungs are clear. The liver, gallbladder, kidneys, pancreas, spleen, and adrenal glands have a normal CT appearance. No dilated loops of small bowel are identified. Study is somewhat limited by motion artifact. No obvious abnormality of the bowel is identified. There are no dilated small bowel loops. There is no free air, free fluid, or abscess. IMPRESSION: No evidence of an acute intra-abdominal process. Electronically signed by: Ricardo Reid MD 09/28/2019 10:00 AM [employer] ARCHITECT
[2019-09-28 11:49] VITALS: BP 112/77; TEMP 98.7; O2SAT 97
== END 2019-09-28 11:49 | disposition home or self-care (01) ==
LOC: ER 07:26
DX: R45.83 Excessive crying of child, adolescent or adult (principal); G80.9 Cerebral palsy, unspecified; F89 Unspecified disorder of psychological development; G40.909 Epilepsy, unspecified, not intractable, without status epilepticus; Z79.899 Other long term (current) drug therapy
CPT/HCPCS: 71045; 74177; 80053; 81001; 83605; 83690; 85025; J7030

== ENCOUNTER 2020-09-15 21:18 | Emergency (ER) | payer BC, OTHER ==
[2020-09-15 21:55] VITALS: TEMP 97.2
--- NOTE | 2020-09-15 22:11 | RAD ---
EXAM: Chest,1 View CLINICAL INDICATION: 25-year-old female with cough. TECHNIQUE: Single view, AP portable chest was obtained. COMPARISON: 09/28/2019. FINDINGS: Unremarkable cardiac and mediastinal silhouette. Heart size is normal. Low lung volumes grossly clear without focal opacity, pneumothorax or pleural effusions. Lumbar spine levorotoscoliosis. The visualized bones are otherwise within normal limits. IMPRESSION: No acute cardiopulmonary abnormalities. Electronically signed by: Mallory Olivares MD 09/15/2020 10:09 PM [facility]
--- NOTE | 2020-09-15 23:10 | ED.PDOC ---
History of Present Illness - General Chief Complaint: General Stated Complaint: sat 88% then 94%, marisela hale to come to ED, Time Seen by Provider: 09/15/20 21:27 Source: patient, RN notes reviewed, Vital Signs reviewed, RN/MD - Dr. Lamb Exam Limitations: physical impairment - Pt with MR, CP and microcephaly - History of Present Illness Initial Comments: Patient is a 25-year-old female with a history of mental retardation, cerebral palsy and microcephaly who was sent by her PCP for further evaluation. Patient's mother, from whom I obtained history, was diagnosed with COVID-19 today. Patient was noted to have fever at home and mother became concerned. I discussed this history with Dr. Lamb when he called and offered to further evaluate the patient for him. On arrival here, patient is smiling, happy and in no acute distress. Patient appeared nontoxic. Timing/Duration: 1-3 hours Severity: mild Improving Factors: nothing Worsening Factors: nothing Associated Symptoms: cough, fever/chills Allergies/Adverse Reactions: Allergies NO KNOWN ALLERGY Allergy (Verified 09/28/19 07:42) Home Medications: Ambulatory Orders Montelukast [Singulair] 10 mg PO BEDTIME 06/07/16 Norgestimate-Ethinyl Estradiol [Mononessa 0.25-35 mg-Mcg] 1 tab PO DAILY 10/30/18 Review of Systems - Review of Systems Constitutional: States: see HPI, chills, fever. Denies: malaise, weakness EENTM: States: no symptoms reported, eye pain, ear pain, nose pain, nose congestion Respiratory: States: see HPI, cough. Denies: short of breath, stridor, wheezing Cardiology: States: no symptoms reported. Denies: chest pain, syncope Gastrointestinal/Abdominal: States: no symptoms reported. Denies: diarrhea, nausea, vomiting Genitourinary: States: no symptoms reported. Denies: frequency, hematuria Musculoskeletal: States: no symptoms reported. Denies: back pain, neck pain Skin: States: no symptoms reported. Denies: change in color, rash Neurological: States: see HPI. Denies: weakness Endocrine: States: no symptoms reported. Denies: increased hunger, increased thirst, increased urine Hematologic/Lymphatic: States: no symptoms reported. Denies: blood clots, easy bleeding Unable to Obtain Due To: other - Review of systems was difficult to obtain secondary to patient's mental retardation. All review of systems were obtained from mother or reviewing patient. All other Systems: No Change from Baseline Past Medical History (General) - Patient Medical History Hx Seizures: Yes - Epilespy Hx Stroke: No Hx Dementia: No Hx Asthma: - Seasonal allergies Hx of COPD: No Hx Cardiac Disorders: No Hx Congestive Heart Failure: No Hx Pacemaker: No Hx Hypertension: No Hx Thyroid Disease: No Hx Diabetes: No Hx Gastroesophageal Reflux: No Hx Renal Disease: No Hx Cancer: No Hx of HIV: No Hx Hepatitis C: No Hx MRSA: No Hx Other PMH: Yes - Cerebral palsy, microcephaly Surgical History: other - Vaccination History Hx Tetanus, Diphtheria Vaccination: No Hx Influenza Vaccination: No Hx Pneumococcal Vaccination: No - Social History Hx Tobacco Use: No Hx Alcohol Use: No Hx Substance Use: No Hx Substance Use Treatment: No Hx Depression: No Hx Physical Abuse: No Hx Emotional Abuse: No - Female History Patient is a Female of Child Bearing Age (10 -59 yrs old): No Patient : No Family Medical History - Family History Mother Family History: No Known Father Family History: No Known Physical Exam - Physical Exam General Appearance: Alert, Comfortable, No apparent distress, Well Developed, Well Groomed, Well Hydrated, Well Nourished Eye Exam: bilateral normal Ears, Nose, Throat: hearing grossly normal, normal ENT inspection, normal pharynx Neck: non-tender, full range of motion, supple Respiratory: chest non-tender, lungs clear, normal breath sounds, no respiratory distress, no accessory muscle use Cardiovascular/Chest: normal peripheral pulses, regular rate, rhythm, no edema, no gallop, no JVD, no murmur Peripheral Pulses: radial,right: 2+, radial,left: 2+ Gastrointestinal/Abdominal: normal bowel sounds, non tender, soft Back Exam: normal inspection, no CVA tenderness, no vertebral tenderness Extremity: non-tender, no pedal edema Neurologic: no motor/sensory deficits, alert, normal mood/affect Skin Exam: normal color, warm/dry Lymphatic: no adenopathy Progress - Progress Progress: Differential diagnosis: Covid, pneumonia, viral URI, bronchitis among others. 09/15/20 23:18 Patient is positive for Covid. She appears nontoxic here and is tolerating p.o. Laboratory testing is relatively unremarkable except for a mildly elevated D- dimer and CRP. I discussed the results with Dr. Lamb as well as the patient's mother. Have recommended discharge home with follow-up with PCP in the morning. Both Dr. Lamb and the mother agree with the plan of care. Plan on discharge at this time. Andrew Richardson M.D. #[id number] - Results/Orders Results/Orders: 09/15/20 21:27 Isolation:Airborne ONCE 09/15/20 21:30 Pulse Ox, Continuous Monitoring STAT 09/16/20 21:30 Pulse Ox, Continuous Monitoring STAT 09/17/20 21:30 Pulse Ox, Continuous Monitoring STAT Laboratory Results - last 24 hr 09/15/20 09/15/20 09/15/20 21:32 21:32 21:32 WBC 6.6 RBC 4.19 L Hgb 13.2 Hct 38.2 MCV 91.1 MCH 31.6 H MCHC 34.7 RDW 13.6 Plt Count 174 MPV 8.1 Absolute Neuts (auto) 4.70 Absolute Lymphs (auto) 1.30 Absolute Monos (auto) 0.60 Absolute Eos (auto) 0.00 Absolute Basos (auto) 0.00 Neutrophils % 71.3 Lymphocytes % 19.3 L Monocytes % 8.7 Eosinophils % 0.1 L Basophils % 0.6 PTT (SP) 24.0 D-Dimer, Quantitative 278.0 Sodium 137 Potassium 3.5 L Chloride 100 L Carbon Dioxide 25 Anion Gap 15.5 BUN 15 Creatinine 0.66 BUN/Creatinine Ratio 22.7 H Random Glucose 166 H Serum Osmolality 278.4 Calcium 8.7 Magnesium 1.8 Total Bilirubin 0.3 AST 61 H ALT 73 H Alkaline Phosphatase 80 LD Total 112 Creatine Kinase 40 Troponin I C-Reactive Protein 2.9 H Serum Total Protein 7.6 Albumin 3.2 Globulin 4.4 H Albumin/Globulin Ratio 0.7 L 09/15/20 21:32 WBC RBC Hgb Hct MCV MCH MCHC RDW Plt Count MPV Absolute Neuts (auto) Absolute Lymphs (auto) Absolute Monos (auto) Absolute Eos (auto) Absolute Basos (auto) Neutrophils % Lymphocytes % Monocytes % Eosinophils % Basophils % PTT (SP) D-Dimer, Quantitative Sodium Potassium Chloride Carbon Dioxide Anion Gap BUN Creatinine BUN/Creatinine Ratio Random Glucose Serum Osmolality Calcium Magnesium Total Bilirubin AST ALT Alkaline Phosphatase LD Total Creatine Kinase Troponin I 0.02 C-Reactive Protein Serum Total Protein Albumin Globulin Albumin/Globulin Ratio EXAM: Chest,1 View CLINICAL INDICATION: 25-year-old female with cough. TECHNIQUE: Single view, AP portable chest was obtained. COMPARISON: 09/28/2019. FINDINGS: Unremarkable cardiac and mediastinal silhouette. Heart size is normal. Low lung volumes grossly clear without focal opacity, pneumothorax or pleural effusions. Lumbar spine levorotoscoliosis. The visualized bones are otherwise within normal limits. IMPRESSION: No acute cardiopulmonary abnormalities. Electronically signed by: Mallory Olivares MD 09/15/2020 10:09 PM Covid test is Positive Departure - Departure Clinical Impression: COVID-19, Viral illness Fever Qualifiers: Fever type: unspecified Qualified Code(s): R50.9 - Fever, unspecified Time of Disposition: 23:20 Disposition: Discharge to Home or Self Care Condition: Good Departure Forms: ED Discharge - Pt. Copy, Patient Portal Self Enrollment Instructions: Coronavirus Disease 2019 (COVID-19) Diet: resume usual diet Activity: increase activity as tolerated Referrals: SHIRIN LAMB MD [Primary Care Provider] - 1-2 Days Home Medications: Ambulatory Orders Montelukast [Singulair] 10 mg PO BEDTIME 06/07/16 Norgestimate-Ethinyl Estradiol [Mononessa 0.25-35 mg-Mcg] 1 tab PO DAILY 10/30/18
[2020-09-15 23:26] VITALS: BP 122/58; O2SAT 97
== END 2020-09-15 23:27 | disposition home or self-care (01) ==
LOC: ER 21:18
DX: U07.1 COVID-19 (principal); G80.9 Cerebral palsy, unspecified; F79 Unspecified intellectual disabilities; G40.909 Epilepsy, unspecified, not intractable, without status epilepticus; Z79.899 Other long term (current) drug therapy